=== PATIENT | female | born 1940 | race African-American/Black ===

== ENCOUNTER 2020-07-21 13:20 | Observation (INO) ==
[2020-07-21] MEDS ORDERED: NITROGLYCERIN SL 0.4 MG TABLET SL PRN (13:49)
[2020-07-21] MEDS ORDERED: ASPIRIN 325 MG TABLET PO STA (13:49)
[2020-07-21 13:55] LABS: Basophils # 0.1 10*3/uL (0.0-0.2); Basophils % 0.7 % (0.0-0.8); Eosinophils # 0.1 10*3/uL (0.0-0.87); Eosinophils % 1.9 % (0.00-10.9); Hematocrit 41.5 VOL% (35.7-47.0); Hemoglobin 12.7 GM/DL (12.0-16.0); Immature Granulocytes % 0.1 %; Immature Granulocytes Absolute 0.01 #; Lymphocytes # 2.1 10*3/uL (1.4-4.0); Lymphocytes % 30.4 % (21.3-54.2); Mean Corpuscular HGB Conc 30.6 GM/DL (32-36); Mean Corpuscular Volume 81.5 FL (87-102); Mean Platelet Volume 9.9 FL (9.6-12.0); Neutrophils % 59.9 % (38.7-73.9); Platelet Count 275 T/CUMM (130-400); Red Blood Count 5.09 MC/CUMM (3.8-5.5); Red Cell Distribution Width 13.8 % (9.3-17.3)
[2020-07-21 14:05] LABS: Partial Thromboplastin Time 26.6 SECS (23.9-33.8)
[2020-07-21 14:07] LABS: Potassium 4.3 MMOL/L (3.5-5.1)
[2020-07-21] MEDS ORDERED: GLUCAGON 1 MG VIAL IM PRN (15:48)
[2020-07-21] MEDS ORDERED: DEXTROSE 50% 25 GM/50 ML VIAL IV PRN (15:48)
[2020-07-21] MEDS ORDERED: ENOXAPARIN 100 MG/ML SYRINGE SUBCUT SCH (16:00)
[2020-07-21] MEDS: ASPIRIN EC 325 MG TABLET PO SCH (16:55)
[2020-07-21] MEDS: SODIUM CHLORIDE 0.9% 1,000 ML IV SCH (17:34)
[2020-07-21] MEDS: PANTOPRAZOLE 40 MG TABLET PO SCH (17:37)
[2020-07-21] MEDS: INSULIN LISPRO 100 UNIT/ML SUBCUT SCH (18:39)
[2020-07-21] MEDS ORDERED: SIMVASTATIN 20 MG TABLET PO SCH (21:00)
[2020-07-21] MEDS: carvediloL 3.125 MG TABLET PO SCH (21:15)
[2020-07-21] MEDS: PREGABALIN 75 MG CAPSULE PO SCH (21:15)
[2020-07-22] MEDS: INSULIN LISPRO 100 UNIT/ML SUBCUT SCH ×3 (01:37→12:09)
[2020-07-22 06:05] LABS: Basophils % 0.7 % (0.0-0.8); Eosinophils # 0.2 10*3/uL (0.0-0.87); Eosinophils % 4.2 % (0.00-10.9); Hematocrit 38.7 VOL% (35.7-47.0); Hemoglobin 11.6 GM/DL (12.0-16.0); Immature Granulocytes % 0.2 %; Immature Granulocytes Absolute 0.01 #; Lymphocytes # 2.1 10*3/uL (1.4-4.0); Lymphocytes % 37.8 % (21.3-54.2); Mean Corpuscular Volume 81.8 FL (87-102); Mean Platelet Volume 10.5 FL (9.6-12.0); Monocytes % 8.3 % (1.7-12.7); Neutrophils % 48.8 % (38.7-73.9); Platelet Count 220 T/CUMM (130-400); Red Blood Count 4.73 MC/CUMM (3.8-5.5); Red Cell Distribution Width 13.9 % (9.3-17.3); White Blood Count 5.5 T/CUMM (4-12)
[2020-07-22] MEDS: SODIUM CHLORIDE 0.9% 1,000 ML IV SCH (06:21)
[2020-07-22 06:24] LABS: Calcium 8.4 MG/DL (8.5-10.1); Osmolality,Calculated 283.3 MOS/KG (273-304); VLDL CHOLESTEROL 25.6 MG/DL
[2020-07-22] MEDS ORDERED: ENOXAPARIN 100 MG/ML SYRINGE SUBCUT SCH (09:00)
[2020-07-22] MEDS: lisinopriL 2.5 MG TABLET PO SCH ×2 (10:15→14:04)
[2020-07-22] MEDS: carvediloL 3.125 MG TABLET PO SCH ×2 (10:15→14:04)
[2020-07-22] MEDS: amLODIPine 10 MG TABLET PO SCH ×2 (10:15→14:04)
[2020-07-22] MEDS: PREGABALIN 75 MG CAPSULE PO SCH ×2 (10:15→14:05)
[2020-07-22] MEDS: PANTOPRAZOLE 40 MG TABLET PO SCH ×2 (10:15→14:04)
[2020-07-22] MEDS: POTASSIUM CHLORIDE 20 MEQ TABLET PO SCH ×2 (10:15→14:04)
[2020-07-22] MEDS: ASPIRIN EC 325 MG TABLET PO SCH ×2 (10:15→14:04)
[2020-07-22 16:14] VITALS: BP 141/76
== END 2020-07-22 16:38 | disposition home or self-care (01) ==
LOC: N.ED 13:20 → N.TELEN 13:20
PROVIDERS: ADMIT Internal Medicine; ATTEND Internal Medicine

== ENCOUNTER 2020-09-12 09:00 | Inpatient (IN) ==
[2020-09-12] MEDS ORDERED: GLUCAGON 1 MG VIAL IM PRN ×2 (13:02)
[2020-09-12] MEDS ORDERED: DEXTROSE 50% 25 GM/50 ML VIAL IV PRN ×2 (13:02)
[2020-09-12] MEDS ORDERED: SODIUM CHLORIDE 0.9% 1,000 ML IV SCH (13:30)
[2020-09-12 13:47] LABS: ABG Base Excess 3.5 MMOL/L (-2.5-2.5); ABG HCO3 28.6 MMOL/L (20-26); ABG Oxygen Saturation 94.4 % (95-100); ABG PCO2 45.6 MM HG (35-48); ABG PH 7.415 (7.35-7.45); ABG PO2 74.9 MM HG (80-95)
[2020-09-12] MEDS ORDERED: NITROGLYCERIN SL 0.4 MG TABLET SL PRN (14:01)
[2020-09-12] MEDS ORDERED: hydrALAZINE 20 MG/1 ML VIAL IV PRN (14:04)
[2020-09-12] MEDS ORDERED: MORPHINE 4 MG/1 ML VIAL IV PRN (14:05)
[2020-09-12 14:07] LABS: Basophils % 0.5 % (0.0-0.8); Eosinophils # 0.1 10*3/uL (0.0-0.87); Hematocrit 37.8 VOL% (35.7-47.0); Immature Granulocytes % 0.3 %; Immature Granulocytes Absolute 0.02 #; Lymphocytes # 1.8 10*3/uL (1.4-4.0); Lymphocytes % 29.8 % (21.3-54.2); Mean Corpuscular HGB Conc 31.7 GM/DL (32-36); Mean Corpuscular Volume 79.2 FL (87-102); Mean Platelet Volume 10.1 FL (9.6-12.0); Monocytes % 8.3 % (1.7-12.7); Neutrophils % 59.1 % (38.7-73.9); Platelet Count 252 T/CUMM (130-400); Red Blood Count 4.77 MC/CUMM (3.8-5.5); Red Cell Distribution Width 13.5 % (9.3-17.3); White Blood Count 5.9 T/CUMM (4-12)
[2020-09-12 14:34] LABS: Alanine Aminotransferase 19 U/L (13-56); Albumin 3.2 G/DL (3.4-5.0); Alkaline Phosphatase 85 U/L (45-117); Aspartate Amino Transferase 16 U/L (0-37); Bilirubin,Total < 0.39 MG/DL (0.2-1.0); Blood Urea Nitrogen 13 MG/DL (7-18); Calcium 9.1 MG/DL (8.5-10.1); Carbon Dioxide 29 MMOL/L (21-32); Estimated Glom Filtration Rate 93 ML/MIN; Glucose 126 MG/DL (74-106); Osmolality,Calculated 284.1 MOS/KG (273-304); Potassium 3.8 MMOL/L (3.5-5.1); Sodium 142 MMOL/L (136-145); Total Protein 7.6 G/DL (6.4-8.2)
[2020-09-12] MEDS: CHLORHEXIDINE 0.12% ORAL RINSE 60 ML BOTTLE SWISH/SPIT SCH ×2 (14:54→22:08)
[2020-09-12] MEDS: CHLORHEXIDINE 4% SOLN 118 ML BOTTLE TOP SCH ×2 (14:55→20:50)
[2020-09-12] MEDS: INSULIN REGULAR 100 UNIT/ML SUBCUT SCH ×2 (16:37→22:05)
[2020-09-12] MEDS: PREGABALIN 75 MG CAPSULE PO SCH (22:07)
[2020-09-13] MEDS: CHLORHEXIDINE 0.12% ORAL RINSE 60 ML BOTTLE SWISH/SPIT SCH ×3 (04:00→21:00)
[2020-09-13] MEDS: CHLORHEXIDINE 4% SOLN 118 ML BOTTLE TOP SCH ×2 (04:00→11:47)
[2020-09-13] MEDS ORDERED: VANCOMYCIN 500 MG VIAL ONE (04:22)
[2020-09-13] MEDS ORDERED: VANCOMYCIN 1,000 MG VIAL ONE (04:22)
[2020-09-13] MEDS ORDERED: PAPAVERINE 60 MG/2 ML VIAL ONE (04:22)
[2020-09-13] MEDS ORDERED: CEFUROXIME INJ 1,500 MG in SODIUM CHLORIDE 0.9% 100 ML IV ONE (05:00)
[2020-09-13] MEDS ORDERED: CALCIUM CHLORIDE 1,000 MG/10 ML VIAL IV ONE ×2 (05:16→10:21)
[2020-09-13] MEDS ORDERED: SODIUM CHLORIDE 0.9% 250 ML IV ONE (05:16)
[2020-09-13] MEDS ORDERED: ETOMIDATE 40 MG/20 ML VIAL IV ONE (05:16)
[2020-09-13] MEDS ORDERED: SODIUM CHLORIDE 0.9% 1,000 ML IV ONE (05:16)
[2020-09-13] MEDS ORDERED: VECURONIUM 10 MG VIAL IV ONE (05:16)
[2020-09-13] MEDS ORDERED: AMINOCAPROIC ACID 5,000 MG/20 ML VIAL ONE (05:16)
[2020-09-13] MEDS ORDERED: HEPARIN/NACL 0.9% 2 UNITS/ML 1,000 UNIT/500 ML BAG IV ONE (05:16)
[2020-09-13] MEDS ORDERED: LACTATED RINGERS 1,000 ML IV ONE ×2 (05:16→12:00)
[2020-09-13] MEDS ORDERED: LIDOCAINE 2% 5 ML VIAL ONE ×2 (05:16→10:34)
[2020-09-13] MEDS ORDERED: SUFentanil 250 MCG/5 ML AMP ONE ×3 (05:16→07:33)
[2020-09-13] MEDS ORDERED: MIDAZOLAM 10 MG/2 ML VIAL ONE ×4 (05:16)
[2020-09-13] MEDS ORDERED: FAMOTIDINE 20 MG TABLET PO ONE (06:00)
[2020-09-13] MEDS ORDERED: DIAZEPAM 5 MG TABLET PO ONE (06:00)
[2020-09-13 07:37] LABS: ABG Base Excess 1.6 MMOL/L (-2.5-2.5); ABG HCO3 25.9 MMOL/L (20-26); ABG PCO2 35.3 MM HG (35-48); ABG TCO2 22.4 MMOL/L (23-27); Glucose Heart Surgery 170 MG/DL (74-106); Hematocrit Heart Surgery 34.4 PERCENT (37-47); Hemoglobin Heart Surgery 11.1 G/DL (12.0-16.0); Ionized Calcium Arterial 1.13 MMOL/L (1.21-1.46); PCO2 Patient Temp Arterial 35.3 MMHG; Patient Temperature 37 CELCIUS; Potassium Heart/CVR 3.7 MMOL/L (3.5-5.1); Sodium Heart/CVR 140 MMOL/L (135-145)
[2020-09-13 07:53] LABS: Bilirubin,Urine Negative (Negative); Blood, Urine Small mg/dL (Negative); Glucose,Urine (UA) Negative (Negative); Ketones,Urine Negative (Negative); Mucus,Urine Occasional /LPF (Occasional); Nitrite,Urine Negative (Negative); Protein,Urine Negative; RBC,Urine <1 /HPF (0-4); Squamous Epithelial Cell,Urine Occasional /HPF (0-10); Urine Appearance CLEAR (Clear); Urine Color Yellow (Yellow); Urine Specific Gravity 1.011 (1.001-1.035); Urine Urobilinogen < 2.0 EU/DL (0.2-1.0)
[2020-09-13] MEDS ORDERED: NITROPRUSSIDE 50 MG/2 ML VIAL ONE (08:03)
[2020-09-13] MEDS ORDERED: SODIUM BICARBONATE 50 MEQ/50 ML VIAL IV ONE ×2 (08:03→10:35)
[2020-09-13] MEDS ORDERED: POTASSIUM CHLORIDE RIDER 100 ML IV ONE (08:04)
[2020-09-13] MEDS ORDERED: CALCIUM CHLORIDE 1,000 MG/10 ML SYRINGE IV ONE (08:04)
[2020-09-13] MEDS ORDERED: PHENYLEPHRINE DRIP 40 MG/250 ML PREMIX IV ONE (08:04)
[2020-09-13] MEDS ORDERED: ATROPINE 1 MG/10 ML SYRINGE ONE (08:05)
[2020-09-13] MEDS ORDERED: EPINEPHrine 1 MG/10 ML SYRINGE ONE (08:05)
[2020-09-13] MEDS ORDERED: ALBUMIN 5% 12.5 GM/250 ML VIAL IV ONE ×2 (08:06→10:35)
[2020-09-13] MEDS ORDERED: NITROGLYCERIN DRIP 50 MG/250 ML BOTTLE IV ONE (08:49)
[2020-09-13] MEDS ORDERED: SEVOFLURANE 1 UNIT/15 MINUTE INH ONE (08:49)
[2020-09-13 09:02] LABS: Hemoglobin Heart Surgery 8.4 G/DL (12.0-16.0); PCO2 Patient Temp Venous 31.6 MM HG; PH Patient Temp Venous 7.533; PO2 Patient Temp Venous 36.2 MM HG; VBG Base Excess 3.1 MEQ/L (0-4); VBG HCO3 26.6 MEQ/L (24-28); VBG Oxygen Saturation 80.8 %; VBG PH 7.487; VBG PO2 44.7 MMHG (17-40); VBG Total CO2 27.7 MMOL/L
[2020-09-13 09:32] LABS: Hematocrit Heart Surgery 28.2 PERCENT (37-47); Hemoglobin Heart Surgery 9.1 G/DL (12.0-16.0); PCO2 Patient Temp Venous 40.1 MM HG; PH Patient Temp Venous 7.43; PO2 Patient Temp Venous 45.2 MM HG; Potassium Heart/CVR 4.2 MMOL/L (3.5-5.1); VBG Base Excess 2.2 MEQ/L (0-4); VBG HCO3 26.1 MEQ/L (24-28); VBG Oxygen Saturation 80.5 %; VBG PCO2 40.1 MMHG (41-51); VBG PH 7.43; VBG PO2 45.2 MMHG (17-40); VBG Total CO2 24.5 MMOL/L
[2020-09-13 10:05] LABS: Hematocrit Heart Surgery 28.9 PERCENT (37-47); Hemoglobin Heart Surgery 9.3 G/DL (12.0-16.0); PCO2 Patient Temp Venous 35.2 MM HG; PH Patient Temp Venous 7.473; PO2 Patient Temp Venous 41.1 MM HG; Potassium Heart/CVR 4.2 MMOL/L (3.5-5.1); VBG Base Excess 2.4 MEQ/L (0-4); VBG HCO3 26.2 MEQ/L (24-28); VBG Oxygen Saturation 77.7 %; VBG PCO2 35.2 MMHG (41-51); VBG PH 7.473; VBG PO2 41.1 MMHG (17-40); VBG Total CO2 23.7 MMOL/L
[2020-09-13] MEDS ORDERED: ESMOLOL 100 MG/10 ML VIAL IV ONE (10:20)
[2020-09-13] MEDS ORDERED: MANNITOL 100 GM/500 ML BAG IV ONE (10:34)
[2020-09-13] MEDS ORDERED: DEXTROSE 5% KCL 20 MEQ 20 MEQ/1,000 ML BAG IV ONE (10:34)
[2020-09-13] MEDS ORDERED: methylPREDNISolone SOD SUC 1,000 MG/8 ML VIAL ONE (10:34)
[2020-09-13] MEDS ORDERED: MAGNESIUM SULFATE 5 GM/10 ML VIAL IV ONE (10:34)
[2020-09-13] MEDS ORDERED: ALBUMIN 25% 25 GM/100 ML VIAL IV ONE (10:34)
[2020-09-13] MEDS ORDERED: HEPARIN 10,000 UNIT/10 ML VIAL ONE (10:35)
[2020-09-13] MEDS ORDERED: FUROSEMIDE 20 MG/2 ML VIAL ONE (10:35)
[2020-09-13] MEDS ORDERED: PROTAMINE SULFATE 250 MG/25 ML VIAL IV ONE (10:35)
[2020-09-13 10:36] LABS: ABG Base Excess 0.2 MMOL/L (-2.5-2.5); ABG HCO3 24.6 MMOL/L (20-26); ABG PCO2 36.9 MM HG (35-48); ABG PH 7.427 (7.35-7.45); ABG TCO2 22.3 MMOL/L (23-27); Glucose Heart Surgery 272 MG/DL (74-106); Hematocrit Heart Surgery 28.2 PERCENT (37-47); Hemoglobin Heart Surgery 9.1 G/DL (12.0-16.0); Ionized Calcium Arterial 1.35 MMOL/L (1.21-1.46); PCO2 Patient Temp Arterial 36.9 MMHG; PH Patient Temp Arterial 7.427; Patient Temperature 37 CELCIUS; Potassium Heart/CVR 3.6 MMOL/L (3.5-5.1); Sodium Heart/CVR 141 MMOL/L (135-145)
[2020-09-13] MEDS ORDERED: MAGNESIUM SULF RIDER 4 GM/100 ML PREMIX IV PRN (11:26)
[2020-09-13] MEDS ORDERED: PHENYLEPHRINE DRIP 40 MG/250 ML PREMIX IV PRN (11:26)
[2020-09-13] MEDS ORDERED: VECURONIUM 10 MG VIAL IV PRN ×2 (11:26)
[2020-09-13] MEDS ORDERED: ACETAMINOPHEN 650 MG SUPP RECTAL PRN (11:26)
[2020-09-13] MEDS ORDERED: MIDAZOLAM 10 MG/2 ML VIAL IV PRN (11:26)
[2020-09-13] MEDS ORDERED: INSULIN REGULAR 100 UNIT/ML IV ONE (11:26)
[2020-09-13] MEDS ORDERED: DEXTROSE 50% 25 GM/50 ML VIAL IV PRN ×2 (11:26)
[2020-09-13] MEDS ORDERED: CHLORHEXIDINE 4% SOLN 118 ML BOTTLE TOP PRN (11:26)
[2020-09-13] MEDS ORDERED: CALCIUM CHLORIDE 1,000 MG/10 ML SYRINGE IV PRN (11:26)
[2020-09-13] MEDS ORDERED: MORPHINE 10 MG/1 ML VIAL IV PRN (11:26)
[2020-09-13] MEDS ORDERED: ONDANSETRON 4 MG/2 ML VIAL IV PRN (11:26)
[2020-09-13] MEDS ORDERED: POTASSIUM CHLORIDE RIDER 10 MEQ in PREMIX 1 EACH IV PRN (11:26)
[2020-09-13] MEDS ORDERED: INSULIN REGULAR DRIP 100 ML IV SCH (11:26)
[2020-09-13] MEDS ORDERED: MAGNESIUM SULF RIDER 2 GM/50 ML PREMIX IV PRN (11:26)
[2020-09-13] MEDS ORDERED: NITROPRUSSIDE 100 MG in DEXTROSE 5% 250 ML IV PRN (11:26)
[2020-09-13] MEDS ORDERED: INSULIN REGULAR 100 UNIT/ML IV PRN (11:26)
[2020-09-13] MEDS: INSULIN REGULAR 100 UNIT/ML SUBCUT SCH (11:48)
[2020-09-13] MEDS: PREGABALIN 75 MG CAPSULE PO SCH (11:48)
[2020-09-13 11:50] LABS: Basophils % 0.3 % (0.0-0.8); Eosinophils # 0.1 10*3/uL (0.0-0.87); Eosinophils % 0.5 % (0.00-10.9); Hematocrit 32.5 VOL% (35.7-47.0); Hemoglobin 10.2 GM/DL (12.0-16.0); Immature Granulocytes % 0.6 %; Immature Granulocytes Absolute 0.06 #; Lymphocytes # 1.2 10*3/uL (1.4-4.0); Lymphocytes % 12.9 % (21.3-54.2); Mean Corpuscular HGB Conc 31.4 GM/DL (32-36); Mean Corpuscular Volume 80.2 FL (87-102); Mean Platelet Volume 9.9 FL (9.6-12.0); Monocytes % 4.7 % (1.7-12.7); Platelet Count 193 T/CUMM (130-400); Red Blood Count 4.05 MC/CUMM (3.8-5.5); Red Cell Distribution Width 13.4 % (9.3-17.3); White Blood Count 9.3 T/CUMM (4-12)
[2020-09-13 11:51] LABS: ABG Base Excess 0.7 MMOL/L (-2.5-2.5); ABG HCO3 25.1 MMOL/L (20-26); ABG Oxygen Saturation 99.6 % (95-100); ABG PCO2 35.8 MM HG (35-48); ABG PH 7.443 (7.35-7.45); Glucose Heart Surgery 257 MG/DL (74-106); Hematocrit Heart Surgery 32.6 PERCENT (37-47); Hemoglobin Heart Surgery 10.6 G/DL (12.0-16.0); Potassium Heart/CVR 3.5 MMOL/L (3.5-5.1)
[2020-09-13 12:01] LABS: INR 1.2; Partial Thromboplastin Time 27.9 SECS (23.9-33.8)
[2020-09-13 12:08] LABS: Albumin 3.4 G/DL (3.4-5.0); Bilirubin,Total 1.7 MG/DL (0.2-1.0); Calcium 9.7 MG/DL (8.5-10.1); Osmolality,Calculated 288.1 MOS/KG (273-304); Potassium 3.4 MMOL/L (3.5-5.1); Total Protein 6.6 G/DL (6.4-8.2)
[2020-09-13 12:09] LABS: CKMB % 4.5 %
[2020-09-13 12:15] LABS: Troponin I 4.81 NG/ML (0.00-0.045)
[2020-09-13 12:23] LABS: Band Neutrophils 10 % (0-10); Eosinophils 1 % (0-10); Lymphocytes 9 % (20-55); Segmented Neutrophils 78 % (50-85); Total Cells Counted 100
[2020-09-13 12:24] LABS: Hypochromasia 1+; Microcytosis 1+
[2020-09-13] MEDS: SODIUM CHLORIDE 0.45% 1,000 ML IV SCH ×2 (12:24)
[2020-09-13 12:25] LABS: Platelet Estimate Normal; Polychromasia 1+
[2020-09-13] MEDS: ALBUMIN 5% 12.5 GM/250 ML VIAL IV PRN ×5 (12:27→22:45)
[2020-09-13] MEDS: POTASSIUM CHLORIDE RIDER 20 MEQ in PREMIX 1 EACH IV PRN ×4 (12:56→18:58)
[2020-09-13] MEDS: LACTATED RINGERS 250 ML IV PRN ×5 (13:07→17:00)
[2020-09-13 15:12] LABS: ABG Base Excess 0.6 MMOL/L (-2.5-2.5); ABG PCO2 35.4 MM HG (35-48); ABG PH 7.446 (7.35-7.45); ABG TCO2 22.1 MMOL/L (23-27); Glucose Heart Surgery 180 MG/DL (74-106); Hematocrit Heart Surgery 30.5 PERCENT (37-47); Hemoglobin Heart Surgery 9.8 G/DL (12.0-16.0); Potassium Heart/CVR 3.2 MMOL/L (3.5-5.1)
[2020-09-13] MEDS: MIDAZOLAM 2 MG/2 ML VIAL IV PRN ×2 (15:31→18:25)
[2020-09-13] MEDS: MORPHINE 4 MG/1 ML VIAL IV PRN ×2 (17:39→19:50)
[2020-09-13] MEDS ORDERED: FUROSEMIDE 40 MG/4 ML VIAL IV ONE (18:36)
[2020-09-13 18:46] LABS: ABG Base Excess -1.7 MMOL/L (-2.5-2.5); ABG Oxygen Saturation 98.4 % (95-100); ABG PCO2 42.1 MM HG (35-48); ABG PH 7.358 (7.35-7.45); ABG TCO2 21.7 MMOL/L (23-27); Glucose Heart Surgery 169 MG/DL (74-106); Hematocrit Heart Surgery 29.6 PERCENT (37-47); Hemoglobin Heart Surgery 9.6 G/DL (12.0-16.0); Potassium Heart/CVR 3.6 MMOL/L (3.5-5.1)
[2020-09-13] MEDS: CEFUROXIME INJ 1,500 MG in SODIUM CHLORIDE 0.9% 100 ML IV SCH (18:49)
[2020-09-13 19:00] LABS: CKMB % 3.1 %
[2020-09-13 19:10] LABS: Troponin I 2.51 NG/ML (0.00-0.045)
[2020-09-13 20:11] LABS: ABG Base Excess -2.6 MMOL/L (-2.5-2.5); ABG HCO3 22.3 MMOL/L (20-26); ABG Oxygen Saturation 98.5 % (95-100); ABG PCO2 43.7 MM HG (35-48); ABG PH 7.335 (7.35-7.45); ABG TCO2 21.3 MMOL/L (23-27); Glucose Heart Surgery 183 MG/DL (74-106); Hematocrit Heart Surgery 30.5 PERCENT (37-47); Hemoglobin Heart Surgery 9.9 G/DL (12.0-16.0); Potassium Heart/CVR 4.1 MMOL/L (3.5-5.1)
[2020-09-13 21:10] LABS: ABG Base Excess -2.8 MMOL/L (-2.5-2.5); ABG PCO2 44.3 MM HG (35-48); ABG PH 7.326 (7.35-7.45); ABG TCO2 21.3 MMOL/L (23-27); Glucose Heart Surgery 190 MG/DL (74-106); Hemoglobin Heart Surgery 9.7 G/DL (12.0-16.0)
[2020-09-14 00:42] LABS: ABG PH 7.368 (7.35-7.45)
[2020-09-14 00:43] LABS: ABG HCO3 22.8 MMOL/L (20-26); ABG PCO2 40.5 MM HG (35-48); ABG PO2 113.1 MM HG (80-95)
[2020-09-14 00:44] LABS: ABG Base Excess -2.3 MMOL/L (-2.5-2.5); ABG Oxygen Saturation 97.8 % (95-100); Glucose Heart Surgery 138 MG/DL (74-106)
[2020-09-14 00:45] LABS: Hemoglobin Heart Surgery 9.7 G/DL (12.0-16.0)
[2020-09-14] MEDS ORDERED: FUROSEMIDE 40 MG/4 ML VIAL IV ONE ×2 (01:00→10:16)
[2020-09-14] MEDS: MORPHINE 4 MG/1 ML VIAL IV PRN ×2 (02:15→04:20)
[2020-09-14 02:55] LABS: ABG HCO3 24.5 MMOL/L (20-26); ABG Oxygen Saturation 98.2 % (95-100); ABG PCO2 41.3 MM HG (35-48); ABG TCO2 22.5 MMOL/L (23-27); Glucose Heart Surgery 137 MG/DL (74-106); Hemoglobin Heart Surgery 10.7 G/DL (12.0-16.0); Potassium Heart/CVR 3.9 MMOL/L (3.5-5.1)
[2020-09-14 04:05] LABS: ABG Base Excess 0.1 MMOL/L (-2.5-2.5); ABG HCO3 24.7 MMOL/L (20-26); ABG Oxygen Saturation 97.4 % (95-100); ABG PCO2 40.3 MM HG (35-48); ABG PH 7.406 (7.35-7.45); ABG PO2 97.9 MM HG (80-95); Glucose Heart Surgery 100 MG/DL (74-106); Hemoglobin Heart Surgery 10.8 G/DL (12.0-16.0); Potassium Heart/CVR 3.6 MMOL/L (3.5-5.1)
[2020-09-14 04:14] LABS: Hematocrit 33.6 VOL% (35.7-47.0); Hemoglobin 10.4 GM/DL (12.0-16.0); Immature Granulocytes % 0.4 %; Immature Granulocytes Absolute 0.05 #; Lymphocytes # 0.6 10*3/uL (1.4-4.0); Lymphocytes % 4.1 % (21.3-54.2); Mean Corpuscular Volume 81.8 FL (87-102); Mean Platelet Volume 10.2 FL (9.6-12.0); Neutrophils % 88.5 % (38.7-73.9); Platelet Count 207 T/CUMM (130-400); Red Blood Count 4.11 MC/CUMM (3.8-5.5); Red Cell Distribution Width 14.1 % (9.3-17.3); White Blood Count 14.1 T/CUMM (4-12)
[2020-09-14] MEDS: POTASSIUM CHLORIDE RIDER 20 MEQ in PREMIX 1 EACH IV PRN (04:30)
[2020-09-14 04:34] LABS: Lymphocytes 4 % (20-55); Platelet Estimate Normal; Segmented Neutrophils 91 % (50-85); Total Cells Counted 100
[2020-09-14 04:41] LABS: Albumin 4.4 G/DL (3.4-5.0); Bilirubin,Direct 0.2 MG/DL (0.0-0.20); Bilirubin,Total 0.7 MG/DL (0.2-1.0); Calcium 9.4 MG/DL (8.5-10.1); Osmolality,Calculated 284.1 MOS/KG (273-304); Potassium 3.7 MMOL/L (3.5-5.1); Total Protein 7.8 G/DL (6.4-8.2)
[2020-09-14 04:44] LABS: CKMB % 2.8 %
[2020-09-14 04:59] LABS: Troponin I 2.19 NG/ML (0.00-0.045)
[2020-09-14] MEDS: CEFUROXIME INJ 1,500 MG in SODIUM CHLORIDE 0.9% 100 ML IV SCH (06:35)
[2020-09-14] MEDS ORDERED: DEXTROSE 50% 25 GM/50 ML VIAL IV PRN ×3 (07:32→12:09)
[2020-09-14] MEDS ORDERED: GLUCAGON 1 MG VIAL IM PRN ×3 (07:32→12:09)
[2020-09-14] MEDS ORDERED: INSULIN REGULAR 100 UNIT/ML SUBCUT SCH ×2 (08:00→12:00)
[2020-09-14] MEDS ORDERED: KETOROLAC 30 MG/1 ML VIAL IV ONE (08:22)
[2020-09-14] MEDS: amLODIPine 10 MG TABLET PO SCH (09:18)
[2020-09-14] MEDS: CHLORHEXIDINE 0.12% ORAL RINSE 60 ML BOTTLE SWISH/SPIT SCH ×2 (09:18→21:57)
[2020-09-14] MEDS: SODIUM CHLORIDE 0.45% 1,000 ML IV SCH ×2 (11:34)
[2020-09-14] MEDS ORDERED: POTASSIUM CHLORIDE 20 MEQ TABLET PO PRN (12:09)
[2020-09-14] MEDS ORDERED: ZALEPLON 5 MG CAPSULE PO PRN (12:09)
[2020-09-14] MEDS ORDERED: MAGNESIUM SULF RIDER 2 GM/50 ML PREMIX IV PRN (12:09)
[2020-09-14] MEDS ORDERED: MAGNESIUM SULF RIDER 4 GM/100 ML PREMIX IV PRN (12:09)
[2020-09-14] MEDS ORDERED: ALUMINUM/MAGNES/SIMETH MAX STR 30 ML UDCUP PO PRN (12:09)
[2020-09-14] MEDS ORDERED: DIPHENHYDRAMINE ACETAMINOPHEN PO PRN (12:09)
[2020-09-14] MEDS ORDERED: SODIUM CHLOR 0.45% KCL 20 MEQ 20 MEQ/1,000 ML BAG IV SCH (12:09)
[2020-09-14] MEDS: KETOROLAC 30 MG/1 ML VIAL IV SCH ×2 (12:35→17:47)
[2020-09-14] MEDS: oxyCODONE/ACETAMINOPHEN 5-325 MG TABLET PO PRN (16:26)
[2020-09-14] MEDS: PREGABALIN 75 MG CAPSULE PO SCH (21:57)
[2020-09-14] MEDS: SIMVASTATIN 20 MG TABLET PO SCH (21:57)
[2020-09-15] MEDS: KETOROLAC 30 MG/1 ML VIAL IV SCH ×2 (00:58→05:33)
[2020-09-15] MEDS ORDERED: FUROSEMIDE 40 MG/4 ML VIAL IV ONE (06:00)
[2020-09-15 06:31] LABS: Basophils % 0.1 % (0.0-0.8); Hematocrit 30.7 VOL% (35.7-47.0); Hemoglobin 9.7 GM/DL (12.0-16.0); Immature Granulocytes % 0.6 %; Immature Granulocytes Absolute 0.08 #; Lymphocytes # 1.2 10*3/uL (1.4-4.0); Lymphocytes % 9.4 % (21.3-54.2); Mean Corpuscular HGB Conc 31.6 GM/DL (32-36); Mean Corpuscular Volume 80.8 FL (87-102); Mean Platelet Volume 10.2 FL (9.6-12.0); Monocytes % 7.6 % (1.7-12.7); Neutrophils % 82.3 % (38.7-73.9); Platelet Count 188 T/CUMM (130-400); Red Cell Distribution Width 14.4 % (9.3-17.3); White Blood Count 12.7 T/CUMM (4-12)
[2020-09-15 07:56] LABS: Albumin 3.4 G/DL (3.4-5.0); Bilirubin,Direct 0.16 MG/DL (0.0-0.20); Bilirubin,Indirect 0.3 MG/DL (0.0-1.0); Bilirubin,Total 0.5 MG/DL (0.2-1.0); CKMB % 1.2 %; Calcium 8.7 MG/DL (8.5-10.1); Osmolality,Calculated 291.4 MOS/KG (273-304); Potassium 4.4 MMOL/L (3.5-5.1); Total Protein 6.6 G/DL (6.4-8.2); Troponin I 0.868 NG/ML (0.00-0.045)
[2020-09-15] MEDS: metFORMIN 500 MG TABLET PO SCH (08:50)
[2020-09-15] MEDS: FERROUS SULFATE 325 MG TABLET PO SCH (08:50)
[2020-09-15] MEDS: ASPIRIN CHEW 81 MG TABLET PO SCH (08:50)
[2020-09-15] MEDS: DOCUSATE SODIUM 100 MG CAPSULE PO SCH (08:50)
[2020-09-15] MEDS: PANTOPRAZOLE 40 MG TABLET PO SCH (08:50)
[2020-09-15] MEDS: PREGABALIN 75 MG CAPSULE PO SCH ×2 (08:51→20:59)
[2020-09-15] MEDS: amLODIPine 10 MG TABLET PO SCH (08:51)
[2020-09-15] MEDS: CHLORHEXIDINE 0.12% ORAL RINSE 60 ML BOTTLE SWISH/SPIT SCH ×2 (08:52→21:03)
[2020-09-15] MEDS ORDERED: lisinopriL 2.5 MG TABLET PO SCH (09:00)
[2020-09-15] MEDS: oxyCODONE/ACETAMINOPHEN 5-325 MG TABLET PO PRN ×2 (13:18→23:46)
[2020-09-15] MEDS: SIMVASTATIN 20 MG TABLET PO SCH (20:59)
[2020-09-16 05:11] LABS: Basophils % 0.2 % (0.0-0.8); Eosinophils # 0.1 10*3/uL (0.0-0.87); Eosinophils % 0.5 % (0.00-10.9); Hematocrit 29.9 VOL% (35.7-47.0); Hemoglobin 8.9 GM/DL (12.0-16.0); Immature Granulocytes % 0.6 %; Immature Granulocytes Absolute 0.06 #; Lymphocytes # 1.8 10*3/uL (1.4-4.0); Lymphocytes % 17.2 % (21.3-54.2); Mean Corpuscular HGB Conc 29.8 GM/DL (32-36); Mean Corpuscular Volume 84.9 FL (87-102); Mean Platelet Volume 10.2 FL (9.6-12.0); Monocytes % 7.8 % (1.7-12.7); Neutrophils % 73.7 % (38.7-73.9); Platelet Count 196 T/CUMM (130-400); Red Blood Count 3.52 MC/CUMM (3.8-5.5); Red Cell Distribution Width 14.4 % (9.3-17.3); White Blood Count 10.4 T/CUMM (4-12)
[2020-09-16 05:22] LABS: Calcium 8.1 MG/DL (8.5-10.1); Osmolality,Calculated 294.4 MOS/KG (273-304); Potassium 4.4 MMOL/L (3.5-5.1)
[2020-09-16 05:40] LABS: Bilirubin,Direct 0.13 MG/DL (0.0-0.20); Bilirubin,Indirect 0.3 MG/DL (0.0-1.0); Bilirubin,Total 0.4 MG/DL (0.2-1.0); CKMB % 0.9 %; Calcium 8.3 MG/DL (8.5-10.1); Osmolality,Calculated 298.1 MOS/KG (273-304); Potassium 4.4 MMOL/L (3.5-5.1); Total Protein 6.2 G/DL (6.4-8.2)
[2020-09-16 05:42] LABS: Troponin I 0.574 NG/ML (0.00-0.045)
[2020-09-16] MEDS: ASPIRIN CHEW 81 MG TABLET PO SCH (08:29)
[2020-09-16] MEDS: FERROUS SULFATE 325 MG TABLET PO SCH (08:30)
[2020-09-16] MEDS: DOCUSATE SODIUM 100 MG CAPSULE PO SCH (08:30)
[2020-09-16] MEDS: lisinopriL 5 MG TABLET PO SCH (08:30)
[2020-09-16] MEDS: ASCORBIC ACID 500 MG TABLET PO SCH ×2 (08:30→20:57)
[2020-09-16] MEDS: metFORMIN 500 MG TABLET PO SCH (08:30)
[2020-09-16] MEDS: PANTOPRAZOLE 40 MG TABLET PO SCH (08:30)
[2020-09-16] MEDS: METOPROLOL TARTRATE 25 MG TABLET PO SCH ×2 (08:30→20:57)
[2020-09-16] MEDS: POTASSIUM CHLORIDE 20 MEQ TABLET PO SCH (08:30)
[2020-09-16] MEDS: PREGABALIN 75 MG CAPSULE PO SCH ×2 (08:30→20:57)
[2020-09-16] MEDS: ONDANSETRON 4 MG/2 ML VIAL IV PRN (08:31)
[2020-09-16] MEDS: CHLORHEXIDINE 0.12% ORAL RINSE 60 ML BOTTLE SWISH/SPIT SCH ×2 (08:31→20:57)
[2020-09-16] MEDS: ROSUVASTATIN 20 MG TABLET PO SCH (20:57)
[2020-09-17] MEDS: oxyCODONE/ACETAMINOPHEN 5-325 MG TABLET PO PRN ×2 (03:24→21:43)
[2020-09-17 05:49] LABS: Basophils % 0.2 % (0.0-0.8); Eosinophils # 0.2 10*3/uL (0.0-0.87); Eosinophils % 1.6 % (0.00-10.9); Hematocrit 30.6 VOL% (35.7-47.0); Hemoglobin 9.1 GM/DL (12.0-16.0); Immature Granulocytes % 0.8 %; Immature Granulocytes Absolute 0.07 #; Lymphocytes # 1.6 10*3/uL (1.4-4.0); Lymphocytes % 17.9 % (21.3-54.2); Mean Corpuscular HGB Conc 29.7 GM/DL (32-36); Mean Corpuscular Volume 85.5 FL (87-102); Mean Platelet Volume 10.3 FL (9.6-12.0); Monocytes % 9.1 % (1.7-12.7); Neutrophils % 70.4 % (38.7-73.9); Platelet Count 215 T/CUMM (130-400); Red Blood Count 3.58 MC/CUMM (3.8-5.5); Red Cell Distribution Width 14.2 % (9.3-17.3); White Blood Count 9.1 T/CUMM (4-12)
[2020-09-17 06:01] LABS: Calcium 8.4 MG/DL (8.5-10.1); Osmolality,Calculated 291.3 MOS/KG (273-304)
[2020-09-17 06:30] LABS: Hypochromasia 1+; Microcytosis 1+; Platelet Estimate Adequate
[2020-09-17] MEDS: METOPROLOL TARTRATE 25 MG TABLET PO SCH ×2 (08:27→21:43)
[2020-09-17] MEDS: lisinopriL 5 MG TABLET PO SCH (08:27)
[2020-09-17] MEDS: ASCORBIC ACID 500 MG TABLET PO SCH ×2 (08:27→21:43)
[2020-09-17] MEDS: FERROUS SULFATE 325 MG TABLET PO SCH (08:27)
[2020-09-17] MEDS: PANTOPRAZOLE 40 MG TABLET PO SCH (08:27)
[2020-09-17] MEDS: PREGABALIN 75 MG CAPSULE PO SCH ×2 (08:27→21:43)
[2020-09-17] MEDS: ASPIRIN CHEW 81 MG TABLET PO SCH (08:27)
[2020-09-17] MEDS: metFORMIN 500 MG TABLET PO SCH (08:27)
[2020-09-17] MEDS: DOCUSATE SODIUM 100 MG CAPSULE PO SCH (08:28)
[2020-09-17] MEDS: CHLORHEXIDINE 0.12% ORAL RINSE 60 ML BOTTLE SWISH/SPIT SCH ×2 (08:32→21:45)
[2020-09-17] MEDS: ROSUVASTATIN 20 MG TABLET PO SCH (21:43)
[2020-09-18 05:22] LABS: Basophils % 0.4 % (0.0-0.8); Eosinophils # 0.3 10*3/uL (0.0-0.87); Eosinophils % 3.2 % (0.00-10.9); Hematocrit 31.8 VOL% (35.7-47.0); Hemoglobin 9.5 GM/DL (12.0-16.0); Immature Granulocytes % 0.6 %; Immature Granulocytes Absolute 0.05 #; Lymphocytes # 2.1 10*3/uL (1.4-4.0); Lymphocytes % 25.2 % (21.3-54.2); Mean Corpuscular HGB Conc 29.9 GM/DL (32-36); Mean Platelet Volume 10.2 FL (9.6-12.0); Monocytes % 9.8 % (1.7-12.7); Neutrophils % 60.8 % (38.7-73.9); Platelet Count 230 T/CUMM (130-400); Red Blood Count 3.74 MC/CUMM (3.8-5.5); Red Cell Distribution Width 13.9 % (9.3-17.3); White Blood Count 8.2 T/CUMM (4-12)
[2020-09-18 05:50] LABS: Alanine Aminotransferase 29 U/L (13-56); Albumin 2.9 G/DL (3.4-5.0); Alkaline Phosphatase 57 U/L (45-117); Aspartate Amino Transferase 34 U/L (0-37); Bilirubin,Indirect 1.5 MG/DL (0.0-1.0); Blood Urea Nitrogen 17 MG/DL (7-18); Calcium 8.5 MG/DL (8.5-10.1); Carbon Dioxide 28 MMOL/L (21-32); Estimated Glom Filtration Rate 109 ML/MIN; Glucose 137 MG/DL (74-106); Osmolality,Calculated 282.4 MOS/KG (273-304); Potassium 3.7 MMOL/L (3.5-5.1); Sodium 140 MMOL/L (136-145); Total Protein 6.3 G/DL (6.4-8.2); Troponin I 0.128 NG/ML (0.00-0.045)
[2020-09-18] MEDS: ACETAMINOPHEN 325 MG TABLET PO PRN ×2 (07:34→08:23)
[2020-09-18] MEDS: ASPIRIN CHEW 81 MG TABLET PO SCH (08:21)
[2020-09-18] MEDS: POTASSIUM CHLORIDE 20 MEQ TABLET PO SCH (08:22)
[2020-09-18] MEDS: ASCORBIC ACID 500 MG TABLET PO SCH ×2 (08:22→20:07)
[2020-09-18] MEDS: PREGABALIN 75 MG CAPSULE PO SCH ×2 (08:22→20:07)
[2020-09-18] MEDS: lisinopriL 5 MG TABLET PO SCH (08:22)
[2020-09-18] MEDS: DOCUSATE SODIUM 100 MG CAPSULE PO SCH (08:22)
[2020-09-18] MEDS: METOPROLOL TARTRATE 25 MG TABLET PO SCH (08:22)
[2020-09-18] MEDS: metFORMIN 500 MG TABLET PO SCH (08:22)
[2020-09-18] MEDS: PANTOPRAZOLE 40 MG TABLET PO SCH (08:22)
[2020-09-18] MEDS: FERROUS SULFATE 325 MG TABLET PO SCH (08:23)
[2020-09-18] MEDS: CHLORHEXIDINE 0.12% ORAL RINSE 60 ML BOTTLE SWISH/SPIT SCH ×2 (08:23→20:07)
[2020-09-18] MEDS ORDERED: POTASSIUM CHLORIDE 20 MEQ TABLET PO ONE (08:38)
[2020-09-18] MEDS: METOPROLOL TARTRATE 50 MG TABLET PO SCH ×2 (09:19→20:07)
[2020-09-18] MEDS: ROSUVASTATIN 20 MG TABLET PO SCH (20:07)
[2020-09-19 05:42] LABS: Basophils % 0.4 % (0.0-0.8); Eosinophils # 0.4 10*3/uL (0.0-0.87); Eosinophils % 3.7 % (0.00-10.9); Hematocrit 32.1 VOL% (35.7-47.0); Hemoglobin 9.9 GM/DL (12.0-16.0); Immature Granulocytes % 0.5 %; Immature Granulocytes Absolute 0.05 #; Lymphocytes # 2.4 10*3/uL (1.4-4.0); Lymphocytes % 24.5 % (21.3-54.2); Mean Corpuscular HGB Conc 30.8 GM/DL (32-36); Mean Corpuscular Volume 81.9 FL (87-102); Mean Platelet Volume 10.3 FL (9.6-12.0); Monocytes % 9.1 % (1.7-12.7); Neutrophils % 61.8 % (38.7-73.9); Platelet Count 254 T/CUMM (130-400); Red Blood Count 3.92 MC/CUMM (3.8-5.5); White Blood Count 9.7 T/CUMM (4-12)
[2020-09-19 06:05] LABS: Alanine Aminotransferase 25 U/L (13-56); Albumin 2.6 G/DL (3.4-5.0); Alkaline Phosphatase 58 U/L (45-117); Aspartate Amino Transferase 30 U/L (0-37); Bilirubin,Indirect 0.4 MG/DL (0.0-1.0); Blood Urea Nitrogen 14 MG/DL (7-18); Calcium 8.6 MG/DL (8.5-10.1); Carbon Dioxide 27 MMOL/L (21-32); Estimated Glom Filtration Rate 109 ML/MIN; Glucose 130 MG/DL (74-106); Osmolality,Calculated 281.4 MOS/KG (273-304); Potassium 3.9 MMOL/L (3.5-5.1); Sodium 140 MMOL/L (136-145); Total Protein 6.2 G/DL (6.4-8.2)
[2020-09-19 06:06] LABS: Troponin I 0.082 NG/ML (0.00-0.045)
[2020-09-19] MEDS: FERROUS SULFATE 325 MG TABLET PO SCH (08:10)
[2020-09-19] MEDS: PANTOPRAZOLE 40 MG TABLET PO SCH (08:11)
[2020-09-19] MEDS: ASPIRIN CHEW 81 MG TABLET PO SCH (08:11)
[2020-09-19] MEDS: METOPROLOL SUCCINATE XL 50 MG TABLET PO SCH (08:11)
[2020-09-19] MEDS: metFORMIN 500 MG TABLET PO SCH (08:11)
[2020-09-19] MEDS: lisinopriL 5 MG TABLET PO SCH (08:11)
[2020-09-19] MEDS: DOCUSATE SODIUM 100 MG CAPSULE PO SCH (08:11)
[2020-09-19] MEDS: PREGABALIN 75 MG CAPSULE PO SCH ×2 (08:11→21:19)
[2020-09-19] MEDS: ASCORBIC ACID 500 MG TABLET PO SCH ×2 (09:22→21:19)
[2020-09-19] MEDS: CHLORHEXIDINE 0.12% ORAL RINSE 60 ML BOTTLE SWISH/SPIT SCH ×2 (09:22→21:19)
[2020-09-19] MEDS: oxyCODONE/ACETAMINOPHEN 5-325 MG TABLET PO PRN ×2 (17:22→21:19)
[2020-09-19] MEDS: ROSUVASTATIN 20 MG TABLET PO SCH (21:19)
[2020-09-20 06:17] LABS: Basophils % 0.4 % (0.0-0.8); Eosinophils # 0.5 10*3/uL (0.0-0.87); Eosinophils % 4.9 % (0.00-10.9); Hematocrit 30.8 VOL% (35.7-47.0); Hemoglobin 9.5 GM/DL (12.0-16.0); Immature Granulocytes Absolute 0.09 #; Lymphocytes # 2.4 10*3/uL (1.4-4.0); Lymphocytes % 26.2 % (21.3-54.2); Mean Corpuscular HGB Conc 30.8 GM/DL (32-36); Mean Corpuscular Volume 82.4 FL (87-102); Mean Platelet Volume 10.4 FL (9.6-12.0); Monocytes % 7.9 % (1.7-12.7); Neutrophils % 59.6 % (38.7-73.9); Platelet Count 257 T/CUMM (130-400); Red Blood Count 3.74 MC/CUMM (3.8-5.5); White Blood Count 9.2 T/CUMM (4-12)
[2020-09-20 06:46] LABS: Calcium 8.5 MG/DL (8.5-10.1); Osmolality,Calculated 281.4 MOS/KG (273-304); Potassium 4.1 MMOL/L (3.5-5.1)
[2020-09-20 06:54] LABS: Hypochromasia 1+; Microcytosis 1+
[2020-09-20 06:55] LABS: Ovalocytes Slight; Platelet Estimate Normal; Polychromasia Slight
[2020-09-20] MEDS: CHLORHEXIDINE 0.12% ORAL RINSE 60 ML BOTTLE SWISH/SPIT SCH ×2 (08:28→22:34)
[2020-09-20] MEDS: ASPIRIN CHEW 81 MG TABLET PO SCH (08:28)
[2020-09-20] MEDS: PREGABALIN 75 MG CAPSULE PO SCH ×2 (08:29→22:31)
[2020-09-20] MEDS: lisinopriL 5 MG TABLET PO SCH (08:29)
[2020-09-20] MEDS: metFORMIN 500 MG TABLET PO SCH (08:29)
[2020-09-20] MEDS: POTASSIUM CHLORIDE 20 MEQ TABLET PO SCH (08:29)
[2020-09-20] MEDS: METOPROLOL SUCCINATE XL 50 MG TABLET PO SCH (08:29)
[2020-09-20] MEDS: FERROUS SULFATE 325 MG TABLET PO SCH (08:29)
[2020-09-20] MEDS: DOCUSATE SODIUM 100 MG CAPSULE PO SCH (08:29)
[2020-09-20] MEDS: PANTOPRAZOLE 40 MG TABLET PO SCH (08:29)
[2020-09-20] MEDS: ASCORBIC ACID 500 MG TABLET PO SCH ×2 (08:29→22:31)
[2020-09-20] MEDS: ROSUVASTATIN 20 MG TABLET PO SCH (22:32)
[2020-09-21 06:13] LABS: Basophils # 0.1 10*3/uL (0.0-0.2); Basophils % 0.6 % (0.0-0.8); Eosinophils # 0.4 10*3/uL (0.0-0.87); Eosinophils % 4.5 % (0.00-10.9); Hematocrit 31.1 VOL% (35.7-47.0); Hemoglobin 9.3 GM/DL (12.0-16.0); Immature Granulocytes Absolute 0.08 #; Lymphocytes # 2.4 10*3/uL (1.4-4.0); Lymphocytes % 29.2 % (21.3-54.2); Mean Corpuscular HGB Conc 29.9 GM/DL (32-36); Mean Corpuscular Volume 83.4 FL (87-102); Mean Platelet Volume 10.2 FL (9.6-12.0); Monocytes % 8.6 % (1.7-12.7); Neutrophils % 56.1 % (38.7-73.9); Platelet Count 294 T/CUMM (130-400); Red Blood Count 3.73 MC/CUMM (3.8-5.5); White Blood Count 8.3 T/CUMM (4-12)
[2020-09-21 06:34] LABS: Calcium 8.5 MG/DL (8.5-10.1); Osmolality,Calculated 280.4 MOS/KG (273-304)
[2020-09-21] MEDS: MAGNESIUM HYDROXIDE SUSP 30 ML UDCUP PO PRN ×2 (06:45→12:11)
[2020-09-21 08:10] LABS: Band Neutrophils 3 % (0-10); Eosinophils 10 % (0-10); Lymphocytes 29 % (20-55); Platelet Estimate Normal; Segmented Neutrophils 51 % (50-85); Total Cells Counted 100
[2020-09-21 08:11] LABS: Anisocytosis 1+; Macrocytosis Slight
[2020-09-21] MEDS: lisinopriL 5 MG TABLET PO SCH (08:38)
[2020-09-21] MEDS: PANTOPRAZOLE 40 MG TABLET PO SCH (08:38)
[2020-09-21] MEDS: ASPIRIN CHEW 81 MG TABLET PO SCH (08:38)
[2020-09-21] MEDS: METOPROLOL SUCCINATE XL 50 MG TABLET PO SCH (08:38)
[2020-09-21] MEDS: DOCUSATE SODIUM 100 MG CAPSULE PO SCH (08:38)
[2020-09-21] MEDS: ASCORBIC ACID 500 MG TABLET PO SCH ×2 (08:38→21:19)
[2020-09-21] MEDS: FERROUS SULFATE 325 MG TABLET PO SCH (08:38)
[2020-09-21] MEDS: metFORMIN 500 MG TABLET PO SCH (08:39)
[2020-09-21] MEDS: PREGABALIN 75 MG CAPSULE PO SCH ×2 (08:39→21:19)
[2020-09-21] MEDS: CHLORHEXIDINE 0.12% ORAL RINSE 60 ML BOTTLE SWISH/SPIT SCH ×2 (08:39→21:43)
[2020-09-21] MEDS: ROSUVASTATIN 20 MG TABLET PO SCH (21:18)
[2020-09-21] MEDS: oxyCODONE/ACETAMINOPHEN 5-325 MG TABLET PO PRN (21:19)
[2020-09-21] MEDS: ONDANSETRON 4 MG/2 ML VIAL IV PRN (21:23)
[2020-09-22 05:58] LABS: Basophils % 0.4 % (0.0-0.8); Eosinophils # 0.3 10*3/uL (0.0-0.87); Eosinophils % 3.6 % (0.00-10.9); Hemoglobin 8.9 GM/DL (12.0-16.0); Immature Granulocytes % 0.9 %; Immature Granulocytes Absolute 0.06 #; Lymphocytes # 2.1 10*3/uL (1.4-4.0); Lymphocytes % 30.3 % (21.3-54.2); Mean Corpuscular HGB Conc 30.7 GM/DL (32-36); Mean Corpuscular Volume 82.6 FL (87-102); Mean Platelet Volume 9.9 FL (9.6-12.0); Monocytes % 9.3 % (1.7-12.7); Neutrophils % 55.5 % (38.7-73.9); Platelet Count 286 T/CUMM (130-400); Red Blood Count 3.51 MC/CUMM (3.8-5.5); White Blood Count 6.9 T/CUMM (4-12)
[2020-09-22 06:18] LABS: Calcium 8.4 MG/DL (8.5-10.1); Osmolality,Calculated 285.1 MOS/KG (273-304); Potassium 4.1 MMOL/L (3.5-5.1)
[2020-09-22 06:58] LABS: Platelet Estimate Normal
[2020-09-22] MEDS: lisinopriL 5 MG TABLET PO SCH (08:35)
[2020-09-22] MEDS: ASPIRIN CHEW 81 MG TABLET PO SCH (08:35)
[2020-09-22] MEDS: FERROUS SULFATE 325 MG TABLET PO SCH (08:35)
[2020-09-22] MEDS: CHLORHEXIDINE 0.12% ORAL RINSE 60 ML BOTTLE SWISH/SPIT SCH ×2 (08:35→23:07)
[2020-09-22] MEDS: metFORMIN 500 MG TABLET PO SCH (08:36)
[2020-09-22] MEDS: DOCUSATE SODIUM 100 MG CAPSULE PO SCH (08:36)
[2020-09-22] MEDS: METOPROLOL SUCCINATE XL 50 MG TABLET PO SCH (08:36)
[2020-09-22] MEDS: ASCORBIC ACID 500 MG TABLET PO SCH ×2 (08:36→23:03)
[2020-09-22] MEDS: POTASSIUM CHLORIDE 20 MEQ TABLET PO SCH (08:36)
[2020-09-22] MEDS: PANTOPRAZOLE 40 MG TABLET PO SCH (08:36)
[2020-09-22] MEDS: PREGABALIN 75 MG CAPSULE PO SCH ×2 (10:16→23:03)
[2020-09-22] MEDS: ROSUVASTATIN 20 MG TABLET PO SCH (23:03)
[2020-09-23 06:09] LABS: Basophils % 0.5 % (0.0-0.8); Eosinophils # 0.3 10*3/uL (0.0-0.87); Eosinophils % 3.6 % (0.00-10.9); Hematocrit 29.8 VOL% (35.7-47.0); Hemoglobin 9.1 GM/DL (12.0-16.0); Immature Granulocytes % 0.8 %; Immature Granulocytes Absolute 0.06 #; Lymphocytes # 2.1 10*3/uL (1.4-4.0); Lymphocytes % 28.2 % (21.3-54.2); Mean Corpuscular HGB Conc 30.5 GM/DL (32-36); Mean Corpuscular Volume 82.8 FL (87-102); Mean Platelet Volume 10.2 FL (9.6-12.0); Monocytes % 7.8 % (1.7-12.7); Neutrophils % 59.1 % (38.7-73.9); Platelet Count 322 T/CUMM (130-400); Red Cell Distribution Width 13.9 % (9.3-17.3); White Blood Count 7.6 T/CUMM (4-12)
[2020-09-23 06:37] LABS: Calcium 8.4 MG/DL (8.5-10.1); Osmolality,Calculated 284.1 MOS/KG (273-304); Potassium 4.2 MMOL/L (3.5-5.1)
[2020-09-23] MEDS: ASCORBIC ACID 500 MG TABLET PO SCH (09:08)
[2020-09-23] MEDS: PANTOPRAZOLE 40 MG TABLET PO SCH (09:08)
[2020-09-23] MEDS: FERROUS SULFATE 325 MG TABLET PO SCH (09:08)
[2020-09-23] MEDS: ASPIRIN CHEW 81 MG TABLET PO SCH (09:08)
[2020-09-23] MEDS: METOPROLOL SUCCINATE XL 50 MG TABLET PO SCH (09:08)
[2020-09-23] MEDS: lisinopriL 5 MG TABLET PO SCH (09:08)
[2020-09-23] MEDS: PREGABALIN 75 MG CAPSULE PO SCH (09:08)
[2020-09-23] MEDS: CHLORHEXIDINE 0.12% ORAL RINSE 60 ML BOTTLE SWISH/SPIT SCH (09:09)
[2020-09-23] MEDS: DOCUSATE SODIUM 100 MG CAPSULE PO SCH (09:09)
[2020-09-23] MEDS: metFORMIN 500 MG TABLET PO SCH (09:09)
[2020-09-23 11:04] VITALS: BP 126/65
== END 2020-09-23 17:59 | disposition swing bed (61) | DRG 236 ==
LOC: N.TELES 11:37 → N.CVR 09-13 10:01 → N.TELES 09-14 12:08